=== PATIENT | female | born 1965 | race Caucasian/White ===

== ENCOUNTER → 2020-09-29 10:26 | Outpatient (CLI) | payer OTHER, SELFPAY ==
--- NOTE | 2020-09-29 | CYSPIN_PTH ---
PATIENT: BENNETT GAGNON LOC: [facility] U#:[id number] AGE/SX: 60/F ROOM: RE09/29/[address]: Dr. Norma Bella MD : 1965 BED: DIS: SPEC #: [id number] RECD: 09/29/20 11:00 STATUS: VIC INDU #: [id number] NAOMIE: 09/29/20 00:[address]: Norma Bella DEPT: CYTOLOGY RECD BY: Lesa Parr Tissues: Urine Procedures: Pap Stain (control) Special Stain Group II Cytospin Fluid HEADER OPERATION: Not noted PRE-OP DIAGNOSIS: Hematuria TISSUE SUBMITTED: Urine for cytology DIAGNOSIS CYTOLOGY Urine for cytology (cytospin): Negative for malignant cells. AM:manolo 09/29/2020 CYTOLOGY STUDY Slides are reviewed. CYTOLOGY GROSS Received is 30 ml of yellow cloudy fluid labeled with the patient's name and and designated per the requisition as urine. Submitted for cytology preparation. / manolo 09/29/2020 TC:5 CPT: 03184
[2020-09-29 10:31] LABS: Cytology, Body Fluid / CSF SEE PATHOLOGY REPORT
== END ==
PROVIDERS: PCP Urology; Referring Provider Urology; Visit Provider Urology
DX: R31.0 Gross hematuria (principal)
CPT/HCPCS: 88108; 88313

== ENCOUNTER 2020-10-31 07:14 | Day surgery (SDC) | payer OTHER, SELFPAY ==
--- NOTE | 2020-10-31 06:33 | EKG12_ITS ---
Test Reason : PRE OP Blood Pressure : / mmHG Vent. Rate : 067 BPM Atrial Rate : 067 BPM P-R Int : 164 ms QRS Dur : 072 ms QT Int : 398 ms P-R-T Axes : 058 -09 012 degrees QTc Int : 420 ms Normal sinus rhythm Inferior infarct , age undetermined Abnormal ECG No previous ECGs available Confirmed by JULIANNA RUSSELL, ESTEFANIA ([id number]), society editor PACO BETTS ([id number]) on 11/06/2020 10:18:02 A M Referred By: Norma Bella Confirmed By:ANIYA LEVINE MD
[2020-10-31 08:05] LABS: Bedside Glucose 156 mg/dL (70-110)
[2020-10-31 08:15] VITALS: BP 130/81; PULSE 74; RESP 16; TEMP 36.3; O2SAT 97; BMI 51.1
[2020-10-31 08:22] LABS: Anion Gap 6 (5-15); BUN 16 mg/dL (7-18); BUN/Creat Ratio 17.4 RATIO (10-20); Calcium,Total 9.1 mg/dL (8.5-10.1); Chloride 108 mmol/L (98-107); Creatinine, Serum 0.92 mg/dL (0.55-1.02); EST Glomerular Filtration Rate 67 mL/min (>60); Est Glom Filt Rate - Afr Amer 81 mL/min (>60); Estimated Creatinine Clearance 65.61 ml/min; Glucose 166 mg/dL (74-106); Potassium 3.9 mmol/L (3.5-5.1); Sodium Level 139 mmol/L (136-145)
[2020-10-31] MEDS: Lactated Ringers 1,000 ML 100 ML IV (08:24)
--- NOTE | 2020-10-31 08:40 | BLA_PTH ---
PATIENT: BENNETT GAGNON LOC: [facility] [place] U#:[id number] AGE/SX: 55/F ROOM: RE10/31/[address]: Dr. Norma Bella MD : 1965 BED: DIS: 10/31/2020 SPEC #: [id number] RECD: 10/31/20 11:46 STATUS: VIC GRIGGS #: [id number] NAOMIE: 10/31/20 08:[address]: Norma eBlla DEPT: SURGICAL PATHOLOGY RECD BY: Lesa Parr Tissues: Urinary bladder, NOS Procedures: Surgery Specimen Level IV HEADER OPERATION: Cysto, bladder biopsy, fulguration, right retrograde pyelogram PRE-OP DIAGNOSIS: Neoplasm of bladder TISSUE SUBMITTED: Bladder biopsy MICROSCOPIC DIAGNOSIS Urinary bladder, biopsy: Chronic follicular cystitis. See comment. AM:manolo 11/01/2020 COMMENT Detrusor muscle is not present in the biopsy. Clinical correlation is suggested. MICROSCOPIC DESCRIPTION Slides are reviewed. GROSS DESCRIPTION Received in fixative is one container labeled with the patient's name and designated bladder biopsy. The specimen consists of two fragments of uribe soft tissue measuring in aggregate 0.3 x 0.1 x 0.1 cm. The specimen is totally submitted in one cassette. / SJ:manolo 10/31/20 TC:3 CPT: 14339
[2020-10-31 08:54] LABS: Hemoglobin A1c 7.4 % (3.8-5.6)
--- NOTE | 2020-10-31 09:47 | PCM.DC.URO ---
Discharge Diet: No Restrictions Discharge Activity: May not drive while taking narcotic pain medications. May resume sexual activity in: No Restrictions Call your doctor if you observe: Fever of 101 or Higher, Inability to urinate, Inability to have a bowel movement, Calf discomfort, Uncontrolled pain Allergies/Adverse Reactions: Allergies amoxicillin [From Augmentin] Allergy (Verified 10/31/20 08:14) Anaphylaxis clavulanic acid [From Augmentin] Allergy (Verified 10/31/20 08:14) Anaphylaxis codeine Allergy (Verified 10/31/20 08:14) Anaphylaxis lisinopril Allergy (Verified 10/31/20 08:14) Anaphylaxis Medications to take at Discharge Cholecalciferol (Vitamin D3) [Vitamin D3] 1,000 unit PO DAILY 10/24/20 Clobetasol Propionate/Emoll [Clobetasol Emollient 0.05% Crm] 15 gm TP DAILY 10/24/20 Dapagliflozin Propanediol [Farxiga] 5 mg PO DAILY 10/24/20 Losartan Potassium [Cozaar] 25 mg PO DAILY 10/24/20 Metformin HCl [Metformin ER Gastric] 1,000 mg PO DAILY 10/24/20 Oxybutynin [Ditropan] 5 mg PO DAILY 10/24/20 Cephalexin [Keflex] 500 mg PO Q12 3 Days #6 capsule 10/31/20 Oxycodone HCl/Acetaminophen [Percocet 5/325] 2 tablet PO Q8H PRN PRN 7 Days #10 tablet 10/31/20 Phenazopyridine HCl [Pyridium] 200 mg PO TID PRN PRN 7 Days #30 tablet 10/31/20 The following prescriptions were given: Cephalexin [Keflex] 500 mg PO Q12 3 Days #6 capsule Transmission Status: Pending to [facility][id number] Oxycodone HCl/Acetaminophen [Percocet 5/325] 2 tablet PO Q8H PRN PRN 7 Days #10 tablet PRN Reason: Pain Transmission Status: Received by [facility][id number] Phenazopyridine HCl [Pyridium] 200 mg PO TID PRN PRN 7 Days #30 tablet PRN Reason: Bladder Spasms Transmission Status: Pending to [facility] #[id number] Orders to be completed after discharge: 12 Lead EKG [[facility]] Time Frame: 10/24/20, Facility: [facility], Location: Cardiovascular Services Primary Care Physician: MEGAN SEVILLA [Other] Test Results: Test results from this visit will be discussed in further detail at your follow-up appointment, if applicable. Please Follow Up With: Norma Bella MD When: call office for appt Proposed Discharge Date: 10/31/20
--- NOTE | 2020-10-31 10:37 | PCM.OPRPT ---
Problem List (1) Bladder neoplasm of uncertain malignant potential Status: Acute (2) Back pain Status: Acute Report of Operation Date of Procedure: 10/31/20 Pre-Operative Diagnosis: Right flank pain, bladder neoplasm of uncertain malignant potential Post-Operative Diagnosis: Same Surgery/Procedure Performed:: Cystoscopy, right retrograde pyelogram, bladder biopsy with fulguration Type of Anesthesia:: General Specimen's removed: Bladder biopsy Description of Procedure: The patient is a 55-year-old female with blood in the urine which was determined to be from the uterus. As part of the evaluation, multiple erythematous lesions were identified within her bladder mucosa. She also had been having right-sided flank discomfort. Informed consent was obtained to proceed with biopsy under anesthesia and retrograde pyelogram for further evaluation of her pain. The patient was taken to the operating room and placed on the operating room table. Anesthesia monitored the head, neck, airway, IV access and vital signs throughout the case. Once anesthesia was appropriate ministered the patient was placed into dorsal lithotomy position was prepped and draped in usual sterile fashion. The cystoscope was inserted through the urethra under direct visualization into the urinary bladder. The bladder mucosa was visualized in its entirety. The lesions identified in the office were no longer present. The right ureteral orifice was identified in the correct anatomic position. It was intubated with a Pollack catheter. Contrast was injected in retrograde fashion under fluoroscopic visualization. The caliber of the ureter and the collecting system was normal. The calyces were sharp. There is no evidence of filling defect or abnormality. At this time the posterior bladder wall was biopsied and the area was fulgurated for hemostatic control. The patient's bladder was emptied and the case was terminated. There was no complication during this procedure. The patient was awakened and taken to the recovery room in good condition. Grafts/Implants Used: None - Complications None - Admit VTE Documentation VTE Present on Admission: Yes VTE Mechan Device Prophylaxis: SCD's VTE Pharm Prophylaxis ordered?: No Reason prophylaxis not ordered:: Treatment Not Indicated
[2020-10-31 10:41] VITALS: BP 127/94; BP 130/81; PULSE 77; RESP 18; TEMP 36.2; O2SAT 97
[2020-10-31 10:45] VITALS: BP 107/65; BP 130/81; PULSE 68; RESP 18; O2SAT 95
[2020-10-31 11:00] VITALS: BP 130/81; PULSE 75; RESP 18; O2SAT 95
[2020-10-31 11:00] LABS: Bedside Glucose 146 mg/dL (70-110)
[2020-10-31 11:15] VITALS: BP 108/95; BP 130/81; PULSE 70; RESP 18; TEMP 36.3; O2SAT 97
--- NOTE | 2020-10-31 11:56 | SUR.PHASEII ---
pt reports that lips feel tingling and hives like feeling to lower lips. states takes claritin for this at home happens frequently. would like to take claritin now. pt denies any SOB, throat or tongue swelling, none noted and no hives visible at this time. talked with dr manjarrez and new order for claritin received. will monitor closely.
[2020-10-31] MEDS: Loratadine 10 MG Tablet PO (12:19)
[2020-10-31 12:28] VITALS: BP 130/81; BP 136/85; PULSE 59; RESP 16; TEMP 36.3; O2SAT 100
== END 2020-10-31 12:55 | disposition home or self-care (01) ==
LOC: SDC 07:15 → AC 07:17
PROVIDERS: Anesthesiology; Referring Provider Urology; Visit Provider Urology
PROC: 0TBB8ZX Excision of Bladder, Via Natural or Artificial Opening Endoscopic, Diagnostic (ICD-10-PCS; CPT 52005; principal; 2020-10-31 08:30)
PROC: (CPT 52332; 2020-10-31 08:30)
DX: D41.4 Neoplasm of uncertain behavior of bladder (principal); N30.20 Other chronic cystitis without hematuria; N93.9 Abnormal uterine and vaginal bleeding, unspecified; R35.1 Nocturia; I10 Essential (primary) hypertension; E11.9 Type 2 diabetes mellitus without complications; Z20.822 Contact with and (suspected) exposure to COVID-19; Z79.84 Long term (current) use of oral hypoglycemic drugs; Z79.899 Other long term (current) drug therapy; Z87.440 Personal history of urinary (tract) infections; Z87.891 Personal history of nicotine dependence
CPT/HCPCS: 52005; 52204; 76000; 80048; 82962; 83036; 87426; 88305; 93005; J7120; J2405